=== PATIENT | female | born 1965 ===

== ENCOUNTER 2017-11-29 00:20 | Emergency (ER) | payer SELFPAY ==
[2017-11-29 00:20] VITALS: BMI 29.2
[2017-11-29 00:48] VITALS: TEMP 97.8; O2SAT 100
--- NOTE | 2017-11-29 01:39 | ED PDOC ---
HPI: General Adult Time Seen by Provider: 11/29/17 00:44 Chief Complaint (Nursing): Palpitations Chief Complaint (Provider): palpitations and headache History Per: Patient History/Exam Limitations: no limitations Onset/Duration Of Symptoms: Days (11/29/17) Additional Complaint(s): 52 year old female with a past medical history of hypertension presents to the ED complaining of palpitations at work. 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 Has been feeling stressed at work and developed palpations and headache. Describes the headache as non-thunderclap and non-maximal. Denies chest pain or shortness of breath. PMD: Yulissa Downey Past Medical History Reviewed: Historical Data, Nursing Documentation, Vital Signs Vital Signs: Last Vital Signs Temp 97.8 F 11/29/17 00:45 Pulse 59 L 11/29/17 02:36 Resp 18 11/29/17 02:36 BP 106/65 11/29/17 02:36 Pulse Ox 100 11/29/17 04:28 - Medical History PMH: HTN, Hypercholesterolemia - Surgical History Surgical History: Cholecystectomy, Hernia Repair (umbilical), (x 2) - Family History Family History: States: Unknown Family Hx - Immunization History Hx Tetanus Toxoid Vaccination: (unknown) - Home Medications Home Medications: Ambulatory Orders Medication Instructions Recorded Lisinopril/Hydrochlorothiazide 1 tab PO DAILY 11/29/17 [Lisinopril-Hctz 10-12.5 mg Tab] Metoprolol Tartrate [Lopressor] 25 mg PO BID 11/29/17 Metoprolol Tartrate [Lopressor] 25 mg PO BID #30 tab 11/29/17 - Allergies Allergies/Adverse Reactions: Allergies Allergy/AdvReac Type Severity Reaction Status Date / Time No Known Allergies Allergy Verified 07/04/14 15:39 Review of Systems ROS Statement: Except As Marked, All Systems Reviewed And Found Negative Cardiovascular: Positive for: Palpitations Neurological: Positive for: Headache (non-thunderclap and non-maximal) Psych: Positive for: Other (stressed) Physical Exam - Reviewed Nursing Documentation Reviewed: Yes Vital Signs Reviewed: Yes - Physical Exam Appears: Positive for: Well, Non-toxic, No Acute Distress Head Exam: Positive for: ATRAUMATIC, NORMAL INSPECTION, NORMOCEPHALIC Skin: Positive for: Normal Color, Warm, Dry Eye Exam: Positive for: EOMI, Normal appearance, PERRL ENT: Positive for: Normal ENT Inspection Neck: Positive for: Normal, Painless ROM, Supple. Negative for: Decreased ROM Cardiovascular/Chest: Positive for: Regular Rate, Rhythm. Negative for: Murmur Respiratory: Positive for: Normal Breath Sounds. Negative for: Decreased Breath Sounds, Accessory Muscle Use, Respiratory Distress Gastrointestinal/Abdominal: Positive for: Normal Exam, Bowel Sounds, Soft. Negative for: Tenderness, Guarding, Rebound Back: Positive for: Normal Inspection. Negative for: L CVA Tenderness, R CVA Tenderness Extremity: Positive for: Normal ROM. Negative for: Tenderness, Pedal Edema, Deformity Neurologic/Psych: Positive for: Alert, Oriented (x3), Gait (steady) - ECG O2 Sat by Pulse Oximetry: 100 (RA) Pulse Ox Interpretation: Normal Medical Decision Making Medical Decision Making: Time: 102 A/P: Patient with a history of HTN off medication presenting w/ resulting palpitations and headache. Patient in no acute distress while symptoms are likely related to stress. Initial Plan: --Lopressor 25mg --Motrin 600mg --Reevaluation 4AM Patient is feeling much better, BP is normal, MATHUR gone. Advised to f/u w/ PMD. Return precautions discussed. Scribe Attestation: Documented by Viktor Mason, acting as a scribe for Taqueria Tim MD Provider Scribe Attestation: All medical record entries made by the Scribe were at my direction and personally dictated by me. I have reviewed the chart and agree that the record accurately reflects my personal performance of the history, physical exam, medical decision making, and the department course for this patient. I have also personally directed, reviewed, and agree with the discharge instructions and disposition. Disposition - Clinical Impression Clinical Impression: Hypertension, Headache - Disposition Referrals: Breanna Burrows MD [Primary Care Provider] - Disposition: Routine/Home Disposition Time: 04:00 Condition: IMPROVED Prescriptions: Metoprolol Tartrate [Lopressor] 25 mg PO BID #30 tab Instructions: Headache, Adult, High Blood Pressure (DC) Forms: [facility] (Serbian) Print Language: MONGOLIAN
[2017-11-29 02:37] VITALS: PULSE 59; RESP 18
[2017-11-29 05:13] VITALS: BP 108/81
== END 2017-11-29 05:01 | disposition home or self-care (01) ==
LOC: H.ER 00:20
DX: R51 Headache (principal); I10 Essential (primary) hypertension; E78.00 Pure hypercholesterolemia, unspecified

== ENCOUNTER 2018-03-14 15:04 | Emergency (ER) | payer MEDICAID, OTHER ==
[2018-03-14 15:04] VITALS: BMI 29.2
[2018-03-14 15:35] VITALS: BP 125/79; PULSE 67; RESP 20; TEMP 98.3; O2SAT 98
--- NOTE | 2018-03-14 16:13 | RAD ---
Date of service: 03/14/2018 PROCEDURE: Left ring finger radiographs. HISTORY: trauma COMPARISON: None. TECHNIQUE: AP radiograph of the left hand, as well as spot oblique and lateral images of left ring finger were obtained. FINDINGS: LEFT RING FINGER: Left ring finger normal, without fracture of focal lesion. Remainder of the left hand (as seen on the AP view) is grossly unremarkable. JOINTS: Mild hyperextension of the proximal interphalangeal joint is appreciated in oblique and lateral views. Clinically correlate. Local soft tissues appear diffusely nonfocal nevertheless. OTHER FINDINGS: None. IMPRESSION: No acute fracture or dislocation left ring finger. Limited hyperextension of the proximal interphalangeal joint is appreciated. Clinically correlate further.
--- NOTE | 2018-03-14 16:58 | ED PDOC ---
Upper Extremity Pain/Injury Time Seen by Provider: 03/14/18 15:40 Chief Complaint (Nursing): Finger,Hand,&Wrist Chief Complaint (Provider): Finger,Hand,&Wrist History Per: Patient History/Exam Limitations: no limitations Onset/Duration Of Symptoms: Days (x1) Additional Complaint(s): Patient is a 52 y/o female with history of HTN who presents to the ED complaining of left 4th digit pain associated with swelling, onset x1 day ago. 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 She took off the gloves and noticed the left 4th finger was swollen and bruised despite no trauma or pain. Patient states that since then symptoms have decreased but are still present. She denies any trauma, fever, limitation in range of motion, or pain with movement. Past Medical History Reviewed: Historical Data, Nursing Documentation, Vital Signs Vital Signs: Last Vital Signs Temp 98.3 F 03/14/18 15:33 Pulse 67 03/14/18 15:33 Resp 20 03/14/18 15:33 BP 125/79 03/14/18 15:33 Pulse Ox 98 03/14/18 15:33 - Medical History PMH: Gall Bladder Disease, HTN, Hypercholesterolemia - Surgical History Surgical History: Cholecystectomy, Hernia Repair (umbilical), (x 2) - Family History Family History: States: Unknown Family Hx - Immunization History Hx Tetanus Toxoid Vaccination: (unknown) - Home Medications Home Medications: Ambulatory Orders Medication Instructions Recorded Lisinopril/Hydrochlorothiazide 1 tab PO DAILY 11/29/17 [Lisinopril-Hctz 10-12.5 mg Tab] Metoprolol Tartrate [Lopressor] 25 mg PO BID 11/29/17 Metoprolol Tartrate [Lopressor] 25 mg PO BID #30 tab 11/29/17 Aspirin [Aspirin EC] 325 mg PO DAILY #7 ect 03/14/18 - Allergies Allergies/Adverse Reactions: Allergies Allergy/AdvReac Type Severity Reaction Status Date / Time No Known Allergies Allergy Verified 03/14/18 15:32 Review of Systems ROS Statement: Except As Marked, All Systems Reviewed And Found Negative Constitutional: Negative for: Fever Musculoskeletal: Positive for: Hand Pain (left 4th digit) Neurological: Positive for: Numbness (pins and needles sensation) Physical Exam - Reviewed Nursing Documentation Reviewed: Yes Vital Signs Reviewed: Yes - Physical Exam Appears: Positive for: Non-toxic, No Acute Distress Head Exam: Positive for: ATRAUMATIC, NORMOCEPHALIC Extremity: Positive for: Normal ROM (full ROM actively of L 4th digit), Capillary Refill (<2 seconds; nail azeri removed still <2 seconds), Other ( diffuse ecchymosis; no break in skin integrity; distal sensation intact; pulse ox on left 4th digit 99% on RA; nail intact). Negative for: Tenderness (left 4th digit), Deformity (left 4th digit), Swelling (left 4th digit) Neurologic/Psych: Positive for: Alert, Oriented. Negative for: Motor/Sensory Deficits - ECG O2 Sat by Pulse Oximetry: 98 (RA; 99 on left 4th digit: RA) Pulse Ox Interpretation: Normal Medical Decision Making Medical Decision Making: Time: 15:41 Initial Impression: Left 4th digit swelling Initial Plan: --RAD - hand left 4th digit Time: 15:50 --Patient evaluated by Dr. Brown, recommends hand surgery consult. 1701 Case d/w Dr. Griffin, plastic surgeon, who states this is likely a vascular issue and requests that pt. be given ASA 325mg PO daily. States that pt. can be dc'd and can f/u in his office on Saturday but is to return to ED if symptoms worsen. Pt. informed of plan and agrees with care. States she will f/u with Dr. Griffin but return to ED if her symptoms worsen. ASA 325mg PO ordered. Scribe Attestation: Documented by Chivo Miles, acting as a scribe for Marcelo Lees PA-C Provider Scribe Attestation: All medical record entries made by the Scribe were at my direction and personally dictated by me. I have reviewed the chart and agree that the record accurately reflects my personal performance of the history, physical exam, medical decision making, and the department course for this patient. I have also personally directed, reviewed, and agree with the discharge instructions and disposition. Disposition - Clinical Impression Clinical Impression: Finger pain - Patient ED Disposition Is Patient to be Admitted: No - Disposition Referrals: [facility] [Outside] Nichelle Griffin MD [Medical Doctor] - Disposition: Routine/Home Disposition Time: 17:02 Condition: STABLE Additional Instructions: GO TO DR. NICHELLE GRIFFIN'S OFFICE ON Saturday03/18/2018 WITHOUT FAIL RETURN TO ED IMMEDIATELY IF SYMPTOMS WORSEN. NILDA CALVIN, thank you for letting us take care of you today. Your provider was Brennen Brown III, DO and you were treated for LT FINGER SWELLING, NUMBNESS. The emergency medical care you received today was directed at your acute symptoms. If you were prescribed any medication, please fill it and take as directed. It may take several days for your symptoms to resolve. Return to the Emergency Department if your symptoms worsen, do not improve, or if you have any other problems. Please contact your doctor or call one of the physicians/clinics you have been referred to that are listed on the Patient Visit Information form that is included in your discharge packet. Bring any paperwork you were given at discharge with you along with any medications you are taking to your follow up visit. Our treatment cannot replace ongoing medical care by a primary care provider outside of the emergency department. [facility] to be part of your care today. If you had an X-Ray or CT scan: A Radiologist will review the ED reading if any change in treatment is needed we will contact you. If you had a blood, urine, or wound culture: It will take several days for the results, if any change in treatment is needed we will contact you. If you had an STI test: It will take 48 hours for the results. Please call after 1 week if you have not heard back. Prescriptions: Aspirin [Aspirin EC] 325 mg PO DAILY #7 ect Forms: [facility] (Estonian) Print Language: [place] ISLANDER
== END 2018-03-14 17:24 | disposition home or self-care (01) ==
LOC: H.ER 15:04
DX: M79.645 Pain in left finger(s) (principal); E78.00 Pure hypercholesterolemia, unspecified; I10 Essential (primary) hypertension

== ENCOUNTER 2018-05-10 09:44 | Emergency (ER) | payer MEDICAID ==
[2018-05-10 09:50] VITALS: BMI 25.3
[2018-05-10 09:51] VITALS: BP 143/83; PULSE 54; RESP 17; TEMP 98.8; O2SAT 98
--- NOTE | 2018-05-10 10:22 | ED PDOC ---
HPI: Abdomen Time Seen by Provider: 05/10/18 09:53 Chief Complaint (Nursing): Pain, Chronic History Per: Patient Onset/Duration Of Symptoms: Days (2) Current Symptoms Are (Timing): Intermittent Episodes Severity: Mild Pain Scale Rating Of: 3 Location Of Pain/Discomfort: Epigastric Quality Of Discomfort: Burning Associated Symptoms: Nausea. denies: Fever, Vomiting, Diarrhea, Urinary Symptoms Exacerbating Factors: None Alleviating Factors: None Last Bowel Movement: Today Additional Complaint(s): Epigastric pain assoc with reflux x 2 days. No vomiting or diarrhea. No fever. Past Medical History Vital Signs: Last Vital Signs Temp 98.8 F 05/10/18 09:51 Pulse 54 L 05/10/18 09:51 Resp 17 05/10/18 09:51 BP 143/83 05/10/18 09:51 Pulse Ox 98 05/10/18 10:24 - Medical History PMH: Gall Bladder Disease, HTN, Hypercholesterolemia - Surgical History Surgical History: Cholecystectomy, Hernia Repair (umbilical), (x 2) - Family History Family History: States: Unknown Family Hx - Immunization History Hx Tetanus Toxoid Vaccination: (unknown) - Home Medications Home Medications: Ambulatory Orders Medication Instructions Recorded Lisinopril/Hydrochlorothiazide 1 tab PO DAILY 11/29/17 [Lisinopril-Hctz 10-12.5 mg Tab] Metoprolol Tartrate [Lopressor] 25 mg PO BID 11/29/17 Metoprolol Tartrate [Lopressor] 25 mg PO BID #30 tab 11/29/17 Aspirin [Aspirin EC] 325 mg PO DAILY #7 ect 03/14/18 Pantoprazole Sodium [Protonix] 40 mg PO DAILY #30 tablet. 05/10/18 - Allergies Allergies/Adverse Reactions: Allergies Allergy/AdvReac Type Severity Reaction Status Date / Time No Known Allergies Allergy Verified 03/14/18 15:32 Review of Systems Constitutional: Negative for: Fever Gastrointestinal: Positive for: Nausea, Abdominal Pain. Negative for: Vomiting , Diarrhea Genitourinary Female: Negative for: Dysuria, Frequency Physical Exam - Physical Exam Cardiovascular/Chest: Positive for: Regular Rate, Rhythm Respiratory: Positive for: Normal Breath Sounds Gastrointestinal/Abdominal: Positive for: Bowel Sounds, Soft, Tenderness (Mild epigastric) Back: Negative for: L CVA Tenderness, R CVA Tenderness - Laboratory Results Result Diagrams: 05/10/18 10:30 05/10/18 10:30 - ECG O2 Sat by Pulse Oximetry: 98 Disposition - Clinical Impression Clinical Impression: GERD (gastroesophageal reflux disease) - Patient ED Disposition Is Patient to be Admitted: No Counseled Patient/Family Regarding: Studies Performed, Diagnosis, Need For Followup, Rx Given - Disposition Referrals: [facility] [Outside] Disposition: Routine/Home Disposition Time: 11:09 Condition: FAIR Prescriptions: Pantoprazole Sodium [Protonix] 40 mg PO DAILY #30 tablet.dr Instructions: Acid Reflux (Gastroesophageal Reflux Disease), Adult (DC) Forms: [facility] (Mohawk)
[2018-05-10 10:38] LABS: BASO % 0.5 % (0.0-2.0); EOS # 0.1 K/uL (0.0-0.7); EOS % 2.4 % (0.0-4.0); HEMOGLOBIN 13.7 g/dL (12.0-16.0); LYMPH # 2.2 K/uL (1.0-4.3); LYMPH % 38.7 % (20.0-40.0); MEAN CELL VOLUME 92.1 fl (81.0-99.0); MEAN CORPUSCULAR HEMOGLOBIN 30.8 pg (27.0-31.0); MEAN CORPUSCULAR HGB CONC 33.5 g/dL (33.0-37.0); MEAN PLATELET VOLUME 9.3 fl (7.2-11.7); MONO # 0.5 K/uL (0.0-0.8); MONO % 9.4 % (0.0-10.0); NEUT # 2.8 K/uL (1.8-7.0); NRBC % 0.2 % (0.0-0.0); RBC 4.45 Mil/uL (3.80-5.20); WHITE BLOOD COUNT 5.7 K/uL (4.8-10.8)
[2018-05-10 10:46] LABS: ALB/GLOB RATIO 1.1 (1.0-2.1); ALBUMIN 4.3 g/dL (3.5-5.0); BLOOD UREA NITROGEN 20 mg/dl (7-17); CALCIUM 9.4 mg/dL (8.4-10.2); GFR NON-AFRICAN AMERICAN > 60
[2018-05-10 10:51] LABS: ALT/SGPT 22 U/L (9-52); AST/SGOT 38 U/L (14-36)
== END 2018-05-10 11:55 | disposition home or self-care (01) ==
LOC: H.ER 09:44
DX: K21.9 Gastro-esophageal reflux disease without esophagitis (principal); I10 Essential (primary) hypertension; Z79.82 Long term (current) use of aspirin; E78.00 Pure hypercholesterolemia, unspecified